=== PATIENT | male | born 1970 | race Caucasian/White ===

== ENCOUNTER 2016-10-11 07:18 | Emergency (ER) | payer MEDICARE ==
[~2016-10-11] VITALS: Ht 177.8 cm; Wt 86.2 kg
[2016-10-11] MEDS ORDERED: IBUPROFEN200 M1 PO (07:32)
[2016-10-11] MEDS ORDERED: PROZAC40 MG PO (07:42)
[2016-10-11] MEDS ORDERED: NORCO 5-325 TA1 EACH PO (08:40)
[2016-10-11] MEDS ORDERED: CRUTCH1 EACH MISC (08:40)
== END 2016-10-11 09:00 | disposition home or self-care (01) ==
LOC: ED 07:18
DX: S82.091A Other fracture of right patella, initial encounter for closed fracture (principal); F32.9 Major depressive disorder, single episode, unspecified; Z87.891 Personal history of nicotine dependence; Z79.899 Other long term (current) drug therapy; W01.0XXA Fall on same level from slipping, tripping and stumbling without subsequent striking against object, initial encounter
CPT/HCPCS: 73560; 86780; 99283

== ENCOUNTER 2016-11-09 14:30 | Emergency (ER) | payer MEDICARE ==
[~2016-11-09] VITALS: Ht 177.8 cm; Wt 90.7 kg
[~2016-11-09 14:30] MED LIST: CRUTCH1 EACH MISC; IBUPROFEN200 M1 PO; NORCO 5-325 TA1 EACH PO; PROZAC40 MG PO
[2016-11-09] MEDS ORDERED: PROZAC40 MG PO (14:51)
== END 2016-11-09 14:57 | disposition home or self-care (01) ==
LOC: ED 14:30
DX: K08.89 Other specified disorders of teeth and supporting structures (principal); Z00.8 Encounter for other general examination

== ENCOUNTER 2016-11-10 18:47 | Emergency (ER) | payer MEDICARE ==
[~2016-11-10] VITALS: Ht 177.8 cm; Wt 90.7 kg
== END 2016-11-10 20:10 | disposition left against medical advice (07) ==
LOC: ED 18:47
DX: F19.10 Other psychoactive substance abuse, uncomplicated (principal); Z53.21 Procedure and treatment not carried out due to patient leaving prior to being seen by health care provider

== ENCOUNTER 2016-11-18 14:36 | Emergency (ER) | payer MEDICARE ==
[~2016-11-18] VITALS: Ht 177.8 cm; Wt 90.7 kg
[2016-11-18] MEDS ORDERED: LISINOPRIL10 MG PO (14:48)
== END 2016-11-18 15:25 | disposition home or self-care (01) ==
LOC: ED 14:36
DX: S00.83XA Contusion of other part of head, initial encounter (principal); F32.9 Major depressive disorder, single episode, unspecified; Z79.899 Other long term (current) drug therapy; Y08.89XA Assault by other specified means, initial encounter
CPT/HCPCS: 99282

== ENCOUNTER 2017-07-05 10:28 | Emergency (ER) | payer MEDICARE ==
[~2017-07-05] VITALS: Ht 175.3 cm; Wt 90.7 kg
[~2017-07-05 10:28] MED LIST changes: +LISINOPRIL10 MG PO
== END 2017-07-05 12:15 | disposition home or self-care (01) ==
LOC: ED 10:28
DX: S20.211A Contusion of right front wall of thorax, initial encounter (principal); F32.9 Major depressive disorder, single episode, unspecified; Z79.899 Other long term (current) drug therapy; W18.30XA Fall on same level, unspecified, initial encounter; Y93.23 Activity, snow (alpine) (downhill) skiing, snowboarding, sledding, tobogganing and snow tubing
CPT/HCPCS: 71046; 99283